=== PATIENT | male | born 1975 | race Caucasian/White ===

== ENCOUNTER 2023-06-13 16:03 | Outpatient (OUT) | payer OTHER, SELFPAY ==
--- NOTE | 2023-06-13 | XR_ITS ---
The [address] [address] Patient Name: JIA BOYD MRN: [id number] date: 1975 Sex: M Assigned Patient Location: RAD Current Patient Location: [facility] Accession/Order Number: [id number] Exam Date: 06/13/2023 16:22 Report Date: 06/13/2023 16:52 At the request of: ALYSSA CARTER Procedure: XR knee LT 4V Exam: Radiographs: XR knee LT 4V Reason for exam: injury to left knee Comparison: None XR/XR knee LT 4V IMPRESSION: Trace left effusion. Minimal left knee degenerative change. Remainder of the left knee radiographs are unremarkable. Electronically authenticated by: ROMAN NAJERA Date: 06/13/2023 16:52
== END 2023-06-13 16:04 | disposition home or self-care (01) ==
LOC: RAD 16:06
PROVIDERS: PCP Family Medicine; Visit Provider Nurse Practitioner Family
DX: S89.92XA Unspecified injury of left lower leg, initial encounter (principal); M25.562 Pain in left knee
CPT/HCPCS: 73564

== ENCOUNTER 2025-08-24 10:49 | Outpatient (OUT) | payer BC, SELFPAY ==
--- OUTSIDE RECORDS SUMMARY | 2025-08-18 05:30 | XMS_ITS ---
Author Organization The [facility] in [place] Address [address] [place] [address] Care Team Providers Care [facility] Name Role Phone Kyle Bolivar Primary Care Provider Allergies No Known Allergies REASON FOR VISIT yearly-med refills, dry skin above left ankle, weight loss Medications Medication SIG (Take, Route, Frequency, Duration) Notes Start Date End Date Status Adipex-P 37.5 MG 1 tablet before breakfast Orall y Once a day 5ActiveSimvastatin 20 mgTAKE 1 TABLET BY MOUTH ONCE A DAY 30; Duration: 30ActiveKetoconazole 2 %1 application Externally Once a day; Duration: 14 days 5Active Social History Tobacco Use: Social History Observation Description Date Details (start date - stop date) Never Smoker NA - NA Tobacco Use/Smoking Question Answer Notes Patient is a nonsmoker AUDIT-C (Standard) Question Answer Notes Did you have a drink containing alcohol in the p ast year? Yes How often did you have a drink containing alcohol in the past year?2 to 4 times a month (2 points)How many drinks did you have on a typical day when you were drinking in the past year?1 or 2 drinks (0 point)How often did you have six or more drinks on one occasion in the past year?Never (0 point)Points2 InterpretationNegative Problems Problem Type SNOMED Code ICD Code Onset Dates Problem Status W/U Status Risk Notes Problem Well adult (215515468) Well adult (Z00.00 ) Activeconfirmed Vital Signs Weight 278.4 lbs 08/18/2025 Height 70 in 08/18/2025 Blood pressure systolic 138 mm Hg 08/18/20 25 Blood pressure diastolic 98 mm Hg 025 BMI 39.94 kg/m2 08/18/2025 Encounters Encounter Location Date Provider Diagnosis [facility] [place] [address] [place] [address] 08/18/2025 Kyle Bolivar Well adult Z00.00 an d Borderline hypertension R03.0 Assessments Encounter Date Diagnosis (ICD Code) Assessment Notes Treatment Notes Treatment Clinical Notes Section Notes 08/18/2025 Well adult (ICD-10 - Z00.00) 08/18/2025orderline hypertension (ICD-10 - R03.0) Plan Of Treatment Medication Medication Name Sig Start Date Stop Date Notes Adipex-P 37.5 MG 1 tablet before breakfast Orally Once a day 08/18/2025 Ketoconazole 2 %1 application Externally Once a day; Duration: 14 days08/18/2025 Pending Test Test Name Order Date HEMOGLOBIN A1C (GLYCO) 08/18/2025 LIPID PANEL (CHOL/TRIG/HDL/LDL) 08/18/20 25 STOOL OCCULT BLOOD 08/18/2025 THYROID PANEL (T4/TSH/FREE T3) PSA, SCREENING 08/18/2025 CMP (COMP MET SHARPE) w/eGFR CKD-EPI 2024 CBC WITH DIFF 08/18/2025 Next Appt Details Provider Name:Kyle Bolivar, 11:00:00 AM, [address] [place], [address], Progress Notes * Hayes BOYD MDOB:1975 ( 50 yo M)Acc No.[id number]:08/18/2025 Progress Note Patient: Marya Hayes LIGHT :?Cuauhtemoc Bolivar ([facility]), MDDOB:1975???Age: 50 Y???Sex:MaleDate:08/18/2025Phone:[phone]:[address], [place], [id number] In:10:24 AM ESTCheck Out:11:08 AM EST Subjective: * Chief Complaints: * Y early-med refillsDry skin above left ankleWeight loss * ROS: ???EENT:?hearing changes?denies.?visual changes?denies. non-healing mouth sores?denies.?swollen glands or neck lumps?denies.?hoarseness?denies.?sore throat?denies.?difficulty swallowing?denies.?nose bleeds?denies.?nasal congestion?denies.?ear ache?denies.?ear discharge denies.?ringing in ears?denies.?light sensitivity?denies.?eye pain?denies.?blurring?denies.?eye irritation?denies.?double vision?denies. vision loss?denies.?General/Constitutional:?Sweats:?Denies.?Fatigue?denies.?Sleep proble ms?denies.?Anorexia?denies.?Malaise?denies.?Weight loss?denies. Fatigue or Weakness?denies.?Fever or Chills?denies.?Cardiovascular:?Shortness of Breath w/lying flat?denies.?Lightheadedne ss/dizziness?denies.?Chest tightness/ heavy pressure?denies.?Swelling of legs, a nkles, or feet?denies.?Waking up with shortness of breath?denies.?Chest pain&#16 0;denies.?Palpitations?denies.?Weight gain?denies.?Respiratory:?Chronic or frequent cough?denies.?Coughing up blood&#1 60;denies.?Difficulty breathing?denies.?Productive cough?denies.?Snoring&#1 60;denies.?Shortness of breath that awakens from sleep (PND)?denies.?Chest pain? denies.?Sputum production?denies.?Wheezing?denies.?Musculoskeletal:?Joint pain?denies.?Joint Fluid?denies.?Backpain?denies.?Knee pain?denies.?Neck pain?denies.?Joint Stiffness?denies.?Muscle cramps?denies.?Weakness of muscles?denies.?Arthritis?denies.?Muscle aches?denies.?Pain in shoulder(s)?denies.?Swollen joints?denies.? * Active Problem List Z00.00 Well adult Modified On:08/18/2025W/U Status:confirmed * Medical History: * Surgical History: r ight thumb surgery 1993 * Hospitalization/Major Diagno stic Procedure: D enies Past Hospitalization * Family History: F ather: alive. S ister(s): alive. S on(s): alive. 1 sister(s) - healthy. 2 son(s) . . * Social History: ???Tobacco Use:?Tobacco Use/Smoking?Patient is a?nonsmoker ???Drug/Alcohol:?AUDIT-C (Standard)?Did you have a drink containing alcohol in the past year??Yes ?How often did you have a drink containing alcohol in the past year??2 to 4 times a month (2 points) ?How many drinks did you have on a typical daywhen you were drinking in the past year??1 or 2 drinks (0 point) ?How often did you have six or more drinks on one occasion in the past year??Never (0 point) ?Points?2 ?Interpretation?Negative * Medications: T akingSimvastatin 20 mg Tablet TAKE 1 TABLET BY MOUTH ONCE A DAY 30 Medication List reviewed and reconciled with the patientTaking Simvastatin 20 mg Tablet TAKE 1 TABLET BY MOUTH ONCE A DAY 30 Medication List reviewed and reconciled with the patient * Allergies: N .K.D.A.no[Allergies Verified] Objective: * Vitals: W t:278.4lbs, Ht: 70 in, BP:138/98mm Hg, BMI:39.94Index, Ht-cm: 177.8 cm, Wt-k.28 kg. * Examination: ???Physical Exam: ?GENERAL:?well developed, well nourished, in no acute distress.?HEAD:?normocephalic/atraumatic.?EYES:?pupils equal, round and reactive to light, conjunctivae and sclerae normal.?EARS:?no deformity or lesion of external ear, canals and TM appear normal bilaterally, TM's intact, not inflamed with normal light reflex, hearing grossly normal to conversational speech.?NOSE:?no deformity, discharge, inflammation, or lesions. ?MOUTH:?mucous membranes moist, normal oropharynx and posterior pharynx without lesions or exudates, tongue normal, dentition normal.?NECK:?neck supple, no masses or palpable cervical nodes, trachea midline, thyroid without nodules, masses, tenderness, or enlargement.?CHEST:?no chest wall deformity, no chest wall tenderness. ?LUNGS:?normal respiratory effort and clear to auscultation, no wheezes, rales, or rhonchi, good air exchange.?CARDIO:?regular rate and rhythm, normal S1 and S2, nor murmur, rub, or gallop.?PULSES:?normal capillary refill.?ABDOMEN:?soft, non-distended, non-tender, no masses.?MUSCULOSKELETAL:?no deformity or scoliosis noted, normal range of motion, joints normal, no erythema, edema, effusion, or ecchymosis.?EXTREMITY:?no clubbing, cyanosis, edema, or deformity withnormal ROM in both upper and lower bilateral extremities.?NEUROLOGIC:?grossly normal.?SKIN:?no rashes, ulcerations, or suspicious lesions.?LYMPH NODES:?no cervical adenopathy, nodes normal.?MENTAL STATUS:?alert and oriented x3, normal mood and affect.? Assessment: * Assessment: 1.?Well adult - Z00.00 (Primary)???2.?Borderline hypertension - R03.0??? Plan: * Treatment: Start Ketoconazole Cream, 2 %, 1 application, Externally, Once a day, 14 days, 60, Refills 11.?LAB: HEMOGLOBIN A1C (GLYCO) ?LAB: LIPID PANEL (CHOL/TRIG/HDL/LDL) ?LAB: STOOL OCCULT BLOOD ?LAB: THYROID PANEL (T4/TSH/FREE T3) ?LAB: PSA, SCREENING ?LAB: CMP (COMP MET SHARPE) w/eGFR CKD-EPI ?LAB: CBC WITH DIFF2.?Borderline hypertension? Start Adipex-P Tablet, 37.5 MG, 1 tablet before breakfast, Orally, Once a day, 30.?? * Procedure Codes: * Preventive Medicine: ??Screenings/Counseling:?BMI ACTION PLAN?Above Normal BMI Follow-up?Dietary management education, guidance, and counseling * * Sign off status: CompletedVisit Status:?CHK (Check Out) true * Provider: Rivera Bolivar ([facility])MD Date: 10/19/2024 Generated for Printing/Faxing/eTransmitting on:?08/24/2025 10:53 AM EST History and Physical Notes * Examination CategorySub-CategoryDetailNotesCategory NotesPhysical ExamGENERAL:well developed, well nourished, in no acute distressHEAD:normocephalic/atraumatic EYES:pupils equal, round and reactive to light, conjunctivae and sclerae normal EARS:no deformity or lesion of external ear, canals and TM appear normal bilaterally, TM's intact, not inflamed with normal light reflex, hearing grossly normal to conversational speechNOSE:no deformity, discharge, inflammation, or lesionsMOUTH:mucous membranes moist, normal oropharynx and posterior pharynx without lesions or exudates, tonguenormal, dentition normalNECK:neck supple, no masses or palpable cervical nodes, trachea midline, thyroid without nodules, masses, tenderness, or enlargementCHEST:no chest wall deformity, no chest wall tendernessLUNGS:normal respiratory effort and clear to auscultation, no wheezes, rales, or rhonchi, good air exchangeCARDIO:regular rate and rhythm, normal S1 and S2, nor murmur, rub, or gallopPULSES:normal capillary refillABDOMEN:soft, non-distended, non-tender, no massesRECTAL:MUSCULOSKELETAL:no deformity or scoliosis noted, normal range of motion, joints normal, no erythema, edema, effusion, or ecchymosisEXTREMITY:no clubbing, cyanosis, edema, or deformity with normal ROM in both upper and lower bilateral extremitiesNEUROLOGIC:grossly normalSKIN:no rashes, ulcerations, or suspicious lesionsLYMPH NODES:no cervical adenopathy, nodes normalMENTAL STATUS:alert and oriented x3, normal mood and affect
--- OUTSIDE RECORDS SUMMARY | 2025-08-24 10:54 | XMS_ITS | Patient Health Record ---
Author Organization The [facility] in [place] Address [address] [place] [address] Care Team Providers Care Food Writer Name Role Phone Kyle Bolivar Primary Care Provider [phone] Allergies No Known Allergies Reason For Referral No Information Medications Medication SIG (Take, Route, Frequency, Duration) Notes Start Date End Date Status Adipex-P 37.5 MG 1 tablet before breakfast Orall y Once a day 5ActiveKetoconazole 2 %1 application Externally Once a day; Duration: 14 days5ActiveSimvastatin 20 mgTAKE 1 TABLET BY MOUTH ONCE A DAY 30; Duration: 30Active Social History Tobacco Use: Social History Observation Description Date Details (start date - stop date) Never Smoker NA - NA Tobacco Use/Smoking Question Answer Notes Patient is a nonsmoker Alcohol Screen (Audit-C) Question Answer Notes Did you have a drink containing alcohol in the p ast year? Yes How often did you have 6 or more drinks on one occasion in the past year?Never (0 point)How many drinks did you have on a typical day when you were drinking in the past year?1 or 2 drinks (0 point)How often did you have a drink containing alcohol in the past year?Weekly (3 points)[id number]-E (Standard) Question Answer Notes Did you have [...] W/U Status Risk Notes Problem Well adult (147661373) Well adult (Z00.00 ) Activeconfirmed Vital Signs Blood pressure diastolic 98 mm Hg 08/18/2025 Ezwwad27 in08/18/2025lood pressure mroumkof465 mm Hg08/18/20251842Uwbnel695.4 lbs 08/18/2025BMI39.94 kg/m208/18/2025 Encounters Encounter Location Date Provider Diagnosis [facility] [address] [place] [address] 08/24/2025 Kyle De Leonamber [facility] [place] [address] [facility] [place] [address]/[facility]25Doug amberWell adult Z00.00 and Borderline hypertension R03.0 Assessments Encounter Date Diagnosis (ICD Code) Assessment Notes Treatment Notes Treatment Clinical Notes Section Notes 08/18/2025 Well adult (ICD-10 - Z00.00) 08/18/2025orderline hypertension (ICD-10 - R03.0) Plan Of Treatment Pending Test Test Name Order Date HEMOGLOBIN A1C (GLYCO) 08/18/2025 LIPID PANEL (CHOL/TRIG/HDL/LDL) 08/18/20 25 STOOL OCCULT BLOOD 08/18/2025 THYROID PANEL (T4/TSH/FREE T3) PSA, SCREENING 08/18/2025 CMP (COMP MET SHARPE) w/eGFR CKD-EPI 2024 CBC WITH DIFF 08/18/2025 Next Appt Details Provider Name:Kyle Dietrich Osmel, 11:00:00 AM, [address] [place], [address], Insurance Providers Payer Name Payer Address Payer Phone Subscriber Number Group Number Insured Name Patient Relationship to Insured Coverage Start Date Coverage End Date [employer] PPO PLUS LOCAL PLAN [address] [place] [address] [id number] Branden Thornton - patient is the [id number] 2021 Medical (General) History Medical History History ICD Code Elevated cholesterol E78.00 Over weight E66.3 Surgical History Surgery Date(Month/Year) right thumb surgery 1993
--- OUTSIDE RECORDS SUMMARY | 2025-08-24 11:10 | XMS_ITS | CCD ---
Author Organization [facility] CliniSyia Care Team Providers Care Retail Coverage Merchandiser Lead Name Role Phone HOY, MELLISSA Attending Unavailable HOY, MELLISSA Admitting Unavailable HOY, MELLISSA Primary Care Unavailable HOY, MELLISSA Attending Unavailable HOY, MELLISSA Admitting Unavailable HOY, MELLISSA Primary Care Unavailable HOY, MELLISSA Consulting Unavailable HOY, MELLISSA Consulting Unavailable HOY, MELLISSA Attending Unavailable DR MICHELLE CORRIGAN Primary Care Unavailable HOY, MELLISSA Admitting Unavailable Problems Active Problems Problem ClassificationProblemDateDocumented DateEpisodic/ChronicDisorders of lipid metabolism (4 sources)Pure hypercholesterolemia, unspecified; Translations: [PURE HYPERCHOLESTEROLEMIA UNSPEC]Onset: 30-45-7270TdwzrbyUniyrnssjudg (3 sources)CONTACT W/AND (SUSP) EXPOS COVID-19; Translations: [CONTACT W/AND (SUSP) EXPOS COVID-19]Onset: 2022 Past or Other Problems Problem ClassificationProblemDateDocumented DateEpisodic/ChronicAcute bronchitis (1 source)Acute bronchitis, unspecified; Translations: [ACUTE BRONCHITIS UNSPECIFIED]Onset: 53-96-2487WyasdcocFezriqtzxdgm (1 source)CONTACT W/AND (SUSP) EXPOS COVID-19; Translations: [CONTACT W/AND (SUSP) EXPOS COVID-19]Onset: 08-03-2022 Results Test NameValueInterpretationReference RangeFacilityLIPID PROFILEon 09-11-2022 CHOL-HDL RATIO NORMSEE [facility] CenterComment on above:Result Comment: 3.3 - 4.4 LOW RISK 4.4 - 7.1 AVERAGE RISK 7.1 - 11.0 MODERATE RISK >11.0 HIGH RISKPerformed By: #### CMP, LIPID #### [facility] [address] [place], [place] [address] Dr. Rolf AmesCholesterol [Mass/Vol]238 mg/dLCritically high<=200The [facility] on above:Performed By: #### CMP, LIPID #### [facility] [address] [place] [address] [address] Rolf AmesCholesterol in HDL [Mass/Vol]43 mg/yFPthtbl40-87Nnf [facility] on above:Performed By: #### CMP, LIPID #### [facility] [address] [address] [address] Rolf AmesCholesterol in LDL [Mass/Vol]146.8 mg/dLACMC Healthcare System on above:Performed By: #### CMP, LIPID #### [facility] [address] [place] [address] Dr. Rolf Patel.total/Cholesterol in HDL [Mass ratio]5.5 {ratio} NormalThe [facility] on above:Performed By: #### CMP, LIPID #### [facility] [address] [place] [address] Dr. Rolf Solorzano NORMAL> or = 60 mg/dl - LOW CARDIOVASCULAR RISK <40 mg/dl - HIGH CARDIOVASCULAR RISKACMC Healthcare System on above:Performed By: #### CMP, LIPID #### [facility] [address] [place] [address] Dr. Rolf Ferguson CALC NORMALSEE BELOWMcCullough-Hyde Memorial HospitalCommclaren [facility] [place] on above:Result Comment: <100 mg/dl OPTIMAL 100 - 129 mg/dl NEAR OR ABOVE OPTIMAL 130 - 159 mg/dl BORDERLINE HIGH 160 - 189 mg/dl HIGH >190 mg/dl VERY HIGH Performed By: #### CMP, LIPID #### [facility] [address] [place] [address] Dr. Rolf AmesTriglyceride [Mass/Vol]241 mg/dLCritically high<=150The [facility] on above:Performed By: #### CMP, LIPID #### [facility] [address] [place] [address] Dr. Rolf AmesVLDL CALC48.2 mg/dLNormalThe [facility] HospitalComment on above: Performed By: #### CMP, LIPID #### [facility] [address] [place] [address] Dr. Rolf Hill 14(COMP METB)on 06-39-9276Bgbavmo [Mass/Vol]3.9 g/dLNormal 3.4-5.0The [facility] HospitalComment on above:Performed By: #### CMP, LIPID #### [facility] [address] [place] [address] Dr. Rolf AmesAlbumin/Globulin [Mass ratio]1.1 {ratio}NormalThe [facility] HospitalComment on above:Performed By: #### CMP, LIPID #### [facility] [address] [place] [address] Dr. Rolf Brenner [Catalytic activity/Vol]91 U/ZFnvovu26-669Uyi [facility] HospitalComment on above:Performed By: #### CMP, LIPID #### [facility] [address] [place] [address] Dr. Rolf Chapin [Catalytic activity/Vol]47 U/HOxezfm61-84Yww [facility] HospitalComment on above:Performed By: #### CMP, LIPID #### [facility] [address] [place] [address] Dr. Rolf Trejo gap [Moles/Vol]14.3 mmol/LNormalThe [facility] Comment on above:Performed By: #### CMP, LIPID #### [facility] [address] [place] [address] Dr. Rolf García [Catalytic activity/Vol]24 U/WUayhzc37-48Yxo [facility] HospitalComment on above:Performed By: #### CMP, LIPID #### [facility] [address] [place] [address] Dr. Rolf AmesBilirubin [Mass/Vol]0.4 mg/dLNormal0.2-1.0[facility] Comment on above:Performed By: #### CMP, LIPID #### [facility] [address] [place] [address] Dr. Rolf AmesCalcium [Mass/Vol]9.1 mg/dLNormal8.5-10.1The [facility] Comment on above:Performed By: #### CMP, LIPID #### [facility] [address] [place] [address] Dr. Rolf AmesChloride [Moles/Vol]102 mmol/ZRrmlzf13-272Uxm [facility] Comment on above:Performed By: #### CMP, LIPID #### [facility] [address] [place] [address] Dr. Rolf AmesCO2 [Moles/Vol]27.0 mmol/ZIemgil47.0-32.0The [facility] Comment on above:Performed By: #### CMP, LIPID #### [facility] [address] [place] [address] Dr. Rolf AmesCreatinine [Mass/Vol]0.91 mg/dLNormal0.70-1.30The [facility] HospitalComment on above:Performed By: #### CMP, LIPID #### [facility] [address] [place] [address] Dr. Rolf NietoGFR-AF BULGARIAN>60Normal>=60The [facility] HospitalComment on above:Performed By: #### CMP, LIPID #### [facility] [address] [place] [address] Dr. Rolf NietoGFR-NON AF BULGARIAN>60Normal>=60The [facility] HospitalComment on above:Performed By: #### CMP, LIPID #### [facility] [address] [place] [address] Dr. Rolf AmesGlobulin (S) [Mass/Vol]3.4 g/dLNormalThe [facility] HospitalComment on above:Performed By: #### CMP, LIPID #### [facility] [address] [place] [address] Dr. Rolf AmesGlucose [Mass/Vol]108 mg/dLCritically xnpm41-251Zbm [facility] HospitalComment on above:Performed By: #### CMP, LIPID #### [facility] [address] [place] [address] Dr. Rolf AmesPotassium [Moles/Vol]4.3 mmol/LNormal3.5-5.1The [facility] Comment on above:Performed By: #### CMP, LIPID #### [facility] [address] [place] [address] Dr. Rolf AmesProtein [Mass/Vol]7.3 g/dLNormal6.4-8.2The [facility] Comment on above:Performed By: #### CMP, LIPID #### [facility] [address] [place] [address] Dr. Rolf AmesSodium [Moles/Vol]139 mmol/GRsznvg061-809FwaBrown Memorial Hospital Comment on above:Performed By: #### CMP, LIPID #### [facility] [address] [place] [address] Dr. Rolf AmesUrea nitrogen [Mass/Vol]14.0 mg/dLNormal7.0-18.0[facility] HospitalComment on above:Performed By: #### CMP, LIPID #### [facility] [address] [place] [address] Dr. Rolf Reynolds nitrogen/Creatinine [Mass ratio]15.4 mg/mgNormalThe [facility] HospitalComment on above:Performed By: #### CMP, LIPID #### [facility] [address] [place] [address] Dr. Rolf AmesCovid-19 PCR ([facility])on 19-79-0677ZFUX-CoV-2 (COVID-19) RNA LISA+probe Ql (Unsp spec)Not detectedNormalNOT DETECTEDThe [facility] Comment on above:Result Comment: This test is not yet approved or cleared by the [place] FDA. When there are no FDA-approved or cleared tests available, and other criteria are met, FDA can make tests available under an emergency access mechanism called an Emergency Use Authorization (EUA). The EUA for this test is supported by the [employer] of Health and Human Service's (HHS's) declaration that circumstances exist to justify the emergency use of in vitro diagnostics for the detection and/or diagnosis of the virus that causes COVID- 19. This EUA will remain in effect (meaning this test can be used) for the duration of the COVID-19 declaration justifying emergency of IVDs, unless it is terminated or revoked by FDA (after which the test may no longer be used). When diagnostic testing is negative, the possibility of a false negative should be considered in the context of a patient's recent exposures and the presence of clinical signs and symptoms consistent with SARS-CoV-2.Performed By: #### CVDTBH #### [facility] [address] [place] [address] Dr. Rolf Salas AND B [facility] [id number] Regional Medical Center on above:Result Comment: Negative for Flu A protein angiten. Infection due to Flu A cannot be ruled out. FluA angiten in the sample may be below the detection limit of the test.Performed By: #### INFLUAB #### [place] [address] Dr. Rolf AmesINFLUBNEGCA [facility] on above: Result Comment: Negative for Flu B protein antigen. Infection due to Flu B cannot be ruled out. FluB antigen in the sample may be below the detection limit of the test.Performed By: #### INFLUAB #### [facility] [address] [place] [address] Dr. Rolf Salas AGNegativeNormalNEGATIVE SEE COMMENTThe [facility] on above:Performed By: #### INFLUAB #### [facility] [address] [place] [address] Dr. Rolf Malhotra AGNegativeNormalNEGATIVE SEE COMMENTThe [facility] on above:Performed By: #### INFLUAB #### [facility] [address] [place] [address] Dr. Rolf AmesINTERNAL CONTROLSWithin Normal LimitsNormalWithin Normal Limits The [facility] Hospitalment on above:Performed By: #### INFLUAB #### [facility] [address] [place] [address] Dr. Rolf Ames Encounters Encounter DateEncounter TypeCare ProviderFacilityStart: 02-34-4948hadlmtsfrr MELLISSA HOYFacility:I1Stvzk: 09-11-2022 End: 38-17-1736tvfcpkzzmjZSYUZCU HOYFacility:Q2Dclfc: 08-03-2022 End: 44-62-9457qgfezmekceEKKAERU HOYFacility:H1 Payers DatePayer CategoryPayerPolicy [id number] Summary Purpose Family History No Family History Records Found Advance Directives No Advanced Directives Records Found Additional Source Comments (unrecognized sect ion and content) No Status Records Found INFORMATION SOURCE (unrecogn ized section and content) DATE CREATED AUTHOR 11/09/2022 [facility] FOR RECORDS PERTAINING TO PATIENTS WHO ARE OR HAVE BEEN ENROLLED IN A CHEMICAL DEPENDENCY/SUBSTANCEABUSE PROGRAM, SOME INFORMATION MAY BE OMITTED. This clinical summary was aggregated from multiple sources. Caution should be exercised in using it in the provision of clinical care. This summary normalizes information from multiple sources, and as a consequence, information in this document may materially change the coding, format and clinical context of patient data. In addition, data may be omitted in some cases. CLINICAL DECISIONS SHOULD BE BASED ON THE PRIMARY CLINICAL RECORDS. [facility]. provides no warranty or guarantee of the accuracy or completeness of information in this document.
[2025-08-24 11:12] LABS: Hematocrit 47.0 % (42.0-54.0); Hemoglobin 15.4 g/dL (14.0-18.0); Immature Granulocytes Abs Auto 0.04 10^3/uL (0.00-0.03); Immature Granulocytes Pct Auto 0.4 % (0.0-0.5); Lymphocytes Absolute Auto 2.7 10^3/uL (1.2-3.8); Mean Corpuscular HGB Conc 32.8 g/dL (29.9-35.2); Mean Corpuscular Hemoglobin 30.9 pg (25.9-34.0); Mean Corpuscular Volume 94.2 fL (80.0-94.0); Platelet Count 184 10^3/uL (150-450); Red Blood Count 4.99 10^6/uL (4.70-6.10); White Blood Count 8.9 10^3/uL (4.0-11.0)
[2025-08-24 11:50] LABS: Alanine Aminotransferase 45 U/L (16-63); Albumin Globulin Ratio 1.0; Albumin Level 3.7 g/dL (3.4-5.0); Alkaline Phosphatase 94 U/L (46-116); Anion Gap 14.4; Aspartate Amino Transferase 23 U/L (15-37); Blood Urea Nitrogen 16.0 mg/dL (7.0-18.0); Calcium 8.8 mg/dL (8.5-10.1); Carbon Dioxide 26.9 mmol/L (21.0-32.0); Chloride 105 mmol/L (98-107); Cholesterol 229 mg/dL (<=200); Estimated GFR (African America >60 (>=60 mL/min/1.73m^2); Estimated GFR (Non-African Ame >60 (>=60 mL/min/1.73m^2); Free T3 2.89 pg/mL (2.18-3.98); Globulin 3.6 g/dL; Glucose 102 mg/dL (74-106); HDL Cholesterol 46 mg/dL (40-60); Potassium 4.3 mmol/L (3.5-5.1); Sodium 142 mmol/L (136-145); Thyroid Stimulating Hormone 1.979 uIU/mL (0.358-3.740); Total Protein 7.3 g/dL (6.4-8.2); Triglycerides 255 mg/dL (<=150); VLDL CHOLESTEROL 51.0 mg/dL
== END 2025-08-24 10:50 | disposition home or self-care (01) ==
LOC: LAB 10:51
PROVIDERS: PCP Family Medicine; Visit Provider Family Medicine
DX: Z00.00 Encounter for general adult medical examination without abnormal findings (principal); Z12.5 Encounter for screening for malignant neoplasm of prostate
CPT/HCPCS: 36415; 80053; 80061; 83036; 84436; 84443; 84481; 85025; G0103